=== PATIENT | male | born 1935 | race Two or more races ===

== ENCOUNTER 2022-11-30 13:46 | Emergency (ER) | payer MEDICARE, BC ==
[~2022-11-30] VITALS: Ht 172.7 cm; Wt 70.3 kg
--- NOTE | 2022-11-30 14:04 | NUR ---
[email or web address], medical screening exam in progress
--- NOTE | 2022-11-30 14:07 | NUR ---
Patient and daugher unable to provide any information about current home medications. Daughter states pt is on a blood thinner (name unk).
[2022-11-30] MEDS ORDERED: HYDROCODONE/APAP 10-325 MG TABLET PO ONE (14:15)
[2022-11-30] MEDS ORDERED: HYDROCODONE/APAP 10-325 MG TABLET ONE (14:18)
--- NOTE | 2022-11-30 15:25 | NUR ---
Patient is resting comfortably on gurney with eyes closed, denies any discomfort, no left shoulder or left arm pains. PATIENT IS PAIN FREE AT THIS TIME. Daughter is at bedside.
[2022-11-30 15:30] LABS: *BILIRUBIN,URIN NEGATIVE (NEGATIVE); *BLOOD, URINE 1+ (NEGATIVE); *CLARITY,URINE CLEAR (CLEAR); *COLOR,URINE YELLOW (YELLOW); *KETONES,URINE NEGATIVE (NEGATIVE); *UROBILINOGEN,URINE 0.2 E.U./dl (NORMAL); LEUKOCYTE ESTERASE ,URINE 1+ (NEGATIVE); NITRITE, URINE NEGATIVE (NEGATIVE); PH,URINE 5.5 (5.0-8.0); UGLUCOSE NEGATIVE (NEGATIVE)
[2022-11-30] MEDS ORDERED: CEFP200T14 PO ×2 (15:59)
--- NOTE | 2022-11-30 16:04 | NUR ---
Patient discharged to home by Dr Gutierrez in stable condition via wheelchair with 2 person-assist for patient to move from gurney to wheelchair to his private car. Written and verbal after care instructions given to patient and daughter. Patient and family verbalized understanding and compliance of instructions. Stressed follow up with primary doctor and urologist or return to ER for worsening s/s.
[2022-11-30 18:04] LABS: BACTERIA,URINE MANY /HPF (NONE SEEN)
[2022-11-30 18:05] LABS: SQUAMOUS EPITHELIAL CELL,UR FEW /HPF (NONE SEEN)
== END 2022-11-30 16:04 | disposition home or self-care (01) ==
LOC: ER 13:46
DX: M25.512 Pain in left shoulder (principal); N39.0 Urinary tract infection, site not specified; W01.0XXA Fall on same level from slipping, tripping and stumbling without subsequent striking against object, initial encounter; Y93.89 Activity, other specified; Y92.89 Other specified places as the place of occurrence of the external cause; Y99.8 Other external cause status
CPT/HCPCS: 73030; 73060; A4663